=== PATIENT | male | born 1980 | race Caucasian/White ===

== ENCOUNTER → 2025-10-16 11:52 | Outpatient (REF) | payer BC, SELFPAY | LOC: RAD 11:52 | PROVIDERS: ATTENDING PHYSICIAN Radiology Diagnostic Radiology; FAMILY PHYSICIAN Family Medicine | DX: T85.192D Other mechanical complication of implanted electronic neurostimulator of spinal cord electrode (lead), subsequent encounter (principal) | CPT/HCPCS: 70360; 71046 ==

== ENCOUNTER → 2025-10-26 06:39 | Outpatient (REF) | payer BC, SELFPAY | LOC: PAVMRI 06:39 | PROVIDERS: ATTENDING PHYSICIAN Physician Assistant Surgical; FAMILY PHYSICIAN Family Medicine | DX: M25.559 Pain in unspecified hip (principal) | CPT/HCPCS: 73718; 76014; 76015 ==